=== PATIENT | male | born 1935 | race Caucasian/White ===

== ENCOUNTER 2018-06-11 09:42 | Outpatient (CLI) | payer MEDICARE ==
--- NOTE | 2018-06-11 19:02 | Diagnostic Imaging Report ---
JOSIAH IZAGUIRRE [facility] [address] [facility].[address] [address] Report Submission Date: Jun 11, 2018 11:11:05 AM CDT Patient Study Name: ALEC TADEO Date: Jun 11, 2018 9:57:36 AM CDT Modality Type: DX Gender: M Description: SINUS : 37 Institution: [facility] Physician: JOSIAH IZAGUIRRE Examination: Plain film sinus History: SINUSES, SOA, SINUS PRESSURE, POST NASAL DRAINAGE (Hx) Comparison exams: None available Findings: 3 views of the sinuses does not demonstrate opacification or air fluid level within the maxillary sinuses. Remaining visualized sinuses are without irregularity. No osseous abnormality. Impression: No sinus opacification or air fluid level. Electronically signed on Jun 11, 2018 11:11:05 AM CDT by: Azam KUO
--- NOTE | 2018-06-11 19:02 | Diagnostic Imaging Report ---
JOSIAH IZAGUIRRE [facility] [address] [facility] [address] [address] Report Submission Date: Jun 11, 2018 11:09:58 AM CDT Patient Study Name: ALEC TADEO Date: Jun 11, 2018 9:50:47 AM CDT Modality Type: DX Gender: M Description: CHEST : 37 Institution: [facility] Physician: JOSIAH IZAGUIRRE Examination: PA and lateral chest. History: Evaluate lung younger. CXR, SOA, WEAKNESS (Hx) Comparison exam: None provided. Findings: PA and lateral views of the chest demonstrates a prominent cardiac and mediastinal silhouette. Significant blunting of the left lung base. Right hemithorax without focal indicated process. Right sided cardiac pacemaker. Mild articular degenerative changes. Impression: Moderate to large left pleural effusion. Electronically signed on Jun 11, 2018 11:09:58 AM CDT by: Azam KUO
== END 2018-06-11 09:43 ==
LOC: RAD 09:42
PROVIDERS: ATTEND Nurse Practitioner Family
DX: R06.02 Shortness of breath (principal); R09.82 Postnasal drip; J34.89 Other specified disorders of nose and nasal sinuses; I50.23 Acute on chronic systolic (congestive) heart failure
CPT/HCPCS: 70220; 71046

== ENCOUNTER 2018-07-13 16:07 | Outpatient (CLI) | payer MEDICARE ==
--- NOTE | 2018-07-14 06:34 | Diagnostic Imaging Report ---
JOSIAH IZAGUIRRE [facility] [address] [facility].[address] [address] Report Submission Date: Jul 13, 2018 4:59:15 PM CDT Patient Study Name: ALEC TADEO Date: Jul 13, 2018 4:09:01 PM CDT Modality Type: DX Gender: M Description: CHEST : 37 Institution: [facility] Physician: JOSIAH IZAGUIRRE Bilateral ribs History: S/p fall A total of 6 views of the bilateral ribs were obtained which demonstrate no evident right rib fracture. There is a nondisplaced fracture involving lateral left 10th rib. There is a left pleural effusion which is similar in size compared with June 11, 2018 and there is an unchanged pacing device. No pneumothorax is seen. Impression: No right rib fractures are noted. Subtle, nondisplaced fracture of the lateral left 10th rib. Left pleural effusion, similar when compared with June 11, 2018. Electronically signed on Jul 13, 2018 4:59:15 PM CDT by: Carol Ann KUO
== END 2018-07-13 16:10 ==
LOC: RAD 16:07
PROVIDERS: ATTEND Nurse Practitioner Family
DX: R07.81 Pleurodynia (principal); W19.XXXA Unspecified fall, initial encounter; Y92.9 Unspecified place or not applicable; Y93.9 Activity, unspecified; Y99.9 Unspecified external cause status
CPT/HCPCS: 71110